=== PATIENT | male | born 1955 | race African-American/Black ===

== ENCOUNTER 2022-07-13 14:46 | Emergency (ER) | payer OTHER ==
[~2022-07-13] VITALS: Ht 152.4 cm; Wt 81.6 kg
== END 2022-07-13 20:44 | disposition home or self-care (01) ==
LOC: ER 14:46
DX: N39.0 Urinary tract infection, site not specified (principal); R10.9 Unspecified abdominal pain

== ENCOUNTER 2022-08-10 14:37 | Emergency (ER) | payer OTHER ==
[~2022-08-10] VITALS: Ht 162.6 cm; Wt 82.6 kg
== END 2022-08-10 17:14 | disposition home or self-care (01) ==
LOC: ER 14:37
DX: N40.0 Benign prostatic hyperplasia without lower urinary tract symptoms (principal); N45.1 Epididymitis; N43.3 Hydrocele, unspecified